=== PATIENT | female | born 1960 | race Caucasian/White ===

== ENCOUNTER → 2024-11-27 09:39 | Outpatient (REF) | payer MEDICARE, OTHER, SELFPAY ==
[2024-11-27 10:47] LABS: Hematocrit 49.2 % (37.0-47.0); Hemoglobin 16.2 g/dL (12.0-16.0); Mean Corp Hgb Conc. 32.9 g/dL (33.0-37.0); Mean Corpuscular Hgb 29.8 pg (27.0-31.0); Mean Corpuscular Volume 90.6 fL (81.0-99.0); Mean Platelet Volume 11.1 fL (7.4-10.4); Platelet Count 229 10^3/uL (130-400); Red Blood Cell Count 5.43 10^6/uL (4.20-5.40); White Blood Cell Count 7.7 10^3/uL (4.8-10.8)
[2024-11-27 10:56] LABS: INR 0.89; PT 12.4 Sec (11.4-14.6)
== END ==
LOC: REG 09:39
PROVIDERS: ATTENDING PHYSICIAN Specialist; FAMILY PHYSICIAN Family Medicine
DX: Z01.810 Encounter for preprocedural cardiovascular examination (principal); Z01.812 Encounter for preprocedural laboratory examination; I49.8 Other specified cardiac arrhythmias; C67.9 Malignant neoplasm of bladder, unspecified
CPT/HCPCS: 93005; 36415; 85027; 85610; 85730

== ENCOUNTER → 2024-11-27 10:33 | Outpatient (REF) | payer MEDICARE, OTHER, SELFPAY | LOC: RAD 10:33 | PROVIDERS: ATTENDING PHYSICIAN Specialist; FAMILY PHYSICIAN Family Medicine | DX: R31.0 Gross hematuria (principal) | CPT/HCPCS: 74178; Q9967 ==

== ENCOUNTER 2024-12-04 06:22 | Day surgery (SDC) | payer MEDICARE, OTHER, SELFPAY ==
[2024-11-27 14:24] VITALS: BMI 26.4
--- NOTE | 2024-11-27 15:39 | PTCARENOTE ---
Abn ECG, Dr Ugalde notified, no additional instructions received.
[2024-12-04] VITALS (8 sets, daily range): BP systolic 108–141; BP diastolic 66–93; BMI 26.4
[2024-12-04] MEDS: NORMOSOL-R/PLASMALYTE-A 1000 IV (08:37)
[2024-12-04] MEDS: SYRINGE NON-PUMP 50 ML IRRIG ×2 (11:22)
[2024-12-04] MEDS: SYRINGE NON-PUMP 50 MG IRRIG ×2 (11:22)
[2024-12-04] MEDS: DETROL LA 4 MG PO (11:38)
== END 2024-12-04 13:25 | disposition home or self-care (01) ==
LOC: SDS 06:22
PROVIDERS: ATTENDING PHYSICIAN Specialist
DX: C67.2 Malignant neoplasm of lateral wall of bladder (principal); D49.4 Neoplasm of unspecified behavior of bladder
CPT/HCPCS: 52234; 88307; J9201

== ENCOUNTER → 2025-03-10 08:35 | Outpatient (REF) | payer MEDICARE, OTHER, SELFPAY ==
[2025-03-10 10:57] LABS: Hematocrit 45.4 % (37.0-47.0); Hemoglobin 15.4 g/dL (12.0-16.0); Mean Corp Hgb Conc. 33.9 g/dL (33.0-37.0); Mean Corpuscular Hgb 30.6 pg (27.0-31.0); Mean Corpuscular Volume 90.3 fL (81.0-99.0); Platelet Count 249 10^3/uL (130-400); Red Blood Cell Count 5.03 10^6/uL (4.20-5.40); Red Cell Dist. Width 12.6 % (11.5-14.5); White Blood Cell Count 4.9 10^3/uL (4.8-10.8)
[2025-03-10 11:03] LABS: Blood Urea Nitrogen 13 mg/dl (7-17); Calcium 9.4 mg/dl (8.4-10.2); Carbon Dioxide 31 mmol/L (22-30); Chloride 102 mmol/L (98-107); Glucose 87 mg/dl (70-99); Potassium 4.4 mmol/L (3.5-5.1); Sodium 141 mmol/L (135-145); eGFR > 60.00
== END ==
LOC: SDSPAT 08:35
PROVIDERS: ATTENDING PHYSICIAN Specialist; FAMILY PHYSICIAN Family Medicine
DX: Z01.818 Encounter for other preprocedural examination (principal)
CPT/HCPCS: 36415; 80048; 85027

== ENCOUNTER 2025-03-17 06:20 | Day surgery (SDC) | payer MEDICARE, OTHER, SELFPAY ==
[2025-03-10 13:05] VITALS: BMI 25.4
[2025-03-17] VITALS (9 sets, daily range): BP systolic 112–151; BP diastolic 68–116; BMI 25.4
[2025-03-17] MEDS: NORMOSOL-R/PLASMALYTE-A 1000 IV (08:23)
[2025-03-17] MEDS: CYSVIEW KIT 100 MG INTRAVES (08:24)
[2025-03-17] MEDS: DILAUDID 0.25 MG IV (12:09)
[2025-03-17] MEDS: Pyridium 200 MG PO (12:44)
[2025-03-17] MEDS: DETROL LA 4 MG PO (12:44)
== END 2025-03-17 14:02 | disposition home or self-care (01) ==
LOC: SDS 06:20
PROVIDERS: ATTENDING PHYSICIAN Specialist; FAMILY PHYSICIAN Family Medicine
DX: C65.2 Malignant neoplasm of left renal pelvis (principal); D41.02 Neoplasm of uncertain behavior of left kidney; R31.0 Gross hematuria; Z85.51 Personal history of malignant neoplasm of bladder; N32.89 Other specified disorders of bladder; N30.20 Other chronic cystitis without hematuria
CPT/HCPCS: 52354; 52332; 52204; C9738; 88305; 74420; 76000; 88341; 88342; A9589; C1758; C1894; C2617

== ENCOUNTER → 2025-04-06 09:15 | Outpatient (REF) | payer MEDICARE, OTHER, SELFPAY | LOC: MRI 09:15 | PROVIDERS: ATTENDING PHYSICIAN Specialist; FAMILY PHYSICIAN Family Medicine | DX: D41.02 Neoplasm of uncertain behavior of left kidney (principal) | CPT/HCPCS: 74183; A9575 ==

== ENCOUNTER 2025-05-14 06:14 | Inpatient (IN) | payer MEDICARE, OTHER, SELFPAY ==
[2025-05-06 12:46] VITALS: BMI 26.0
[2025-05-14] VITALS (13 sets, daily range): BP systolic 115–145; BP diastolic 54–83; BMI 26.0
[2025-05-14] MEDS: NORMOSOL-R/PLASMALYTE-A 1000 IV (06:34)
[2025-05-14] MEDS: DILAUDID 0.25 MG IV ×3 (12:10→12:40)
[2025-05-14 13:26] LABS: Hematocrit 43.7 % (37.0-47.0); Hemoglobin 14.7 g/dL (12.0-16.0); Mean Corp Hgb Conc. 33.6 g/dL (33.0-37.0); Mean Corpuscular Volume 87.8 fL (81.0-99.0); Platelet Count 201 10^3/uL (130-400); Red Cell Dist. Width 12.2 % (11.5-14.5)
[2025-05-14 13:31] LABS: Blood Urea Nitrogen 11 mg/dl (7-17); Calcium 8.2 mg/dl (8.4-10.2); Carbon Dioxide 26 mmol/L (22-30); Chloride 108 mmol/L (98-107); Estimated Creatinine Clearance 81 ml/min; Glucose 123 mg/dl (70-99); Potassium 4.5 mmol/L (3.5-5.1); Sodium 139 mmol/L (135-145); eGFR > 60.00
--- NOTE | 2025-05-14 14:10 | PTCARENOTE ---
Pt arrived to 2S in bed. Full assessment completed. IVF initiated, nasal cannula maintained. Abdominal lap sites C/D/I, glued and ACCOUNTING ADMINISTRATOR. Indwelling catheter clean and intact, draining yellow urine. Pt denies pain at this time. Pt educated on diet and
to ring for assistance with ambulation, verbalized understanding. Bed locked and in the lowest position, safety maintained. Oriented to room and call lee.
[2025-05-14] MEDS: NSS 1000 IV ×2 (14:21→21:25)
[2025-05-14] MEDS: PERCOCET 5/325 1 TABLET PO ×2 (14:31→19:44)
[2025-05-14] MEDS: DILAUDID 0.5 MG IV (16:24)
[2025-05-14] MEDS: LIPITOR 40 MG PO (17:32)
[2025-05-14] MEDS: SENOKOT 17.2 MG PO (19:44)
[2025-05-15 03:00] VITALS: BP 119/63
[2025-05-15] MEDS: PERCOCET 5/325 1 TABLET PO ×2 (03:39→08:29)
--- NOTE | 2025-05-15 06:16 | PTCARENOTE ---
Pt mack removed at 0600. Tolerated well. DTV @ 1200.
[2025-05-15 07:35] VITALS: BP 131/55
[2025-05-15] MEDS: SENOKOT 17.2 MG PO (08:27)
[2025-05-15 08:31] LABS: Hematocrit 40.9 % (37.0-47.0); Hemoglobin 13.9 g/dL (12.0-16.0); Mean Corp Hgb Conc. 34.0 g/dL (33.0-37.0); Mean Corpuscular Volume 88.1 fL (81.0-99.0); Platelet Count 171 10^3/uL (130-400); Red Cell Dist. Width 12.4 % (11.5-14.5)
[2025-05-15 09:15] LABS: Blood Urea Nitrogen 18 mg/dl (7-17); Calcium 8.3 mg/dl (8.4-10.2); Carbon Dioxide 24 mmol/L (22-30); Chloride 110 mmol/L (98-107); Estimated Creatinine Clearance 63 ml/min; Glucose 129 mg/dl (70-99); Potassium 4.1 mmol/L (3.5-5.1); Sodium 137 mmol/L (135-145); eGFR > 60.00
--- NOTE | 2025-05-15 10:09 | W.PN.URO.CBU ---
Today's Communication / Plan
-
Discharge
Assessment / Plan
-
65F POD 1 s/p robotic L Nephroureterectomy for renal cell carcinoma, hx of bladder cancer
- Reg diet
- OOB/ambulate
- IS
- vitals and labs stable
- Discharge today
Diagnosis
-
Date of Service: May 15, 2025
-
Patient Diagnosis:
RCC
Post Op Day: 1 s/p L nephroureterectomy
Subjective
-
no issues overnight
feeling well
voided after mack removal
Objective
-
Vital Signs
Temp Pulse Resp BP Pulse Ox
98.6 F 54 18 131/55 96
05/15/25 07:35 05/15/25 07:35 05/15/25 07:35 05/15/25 07:35 05/15/25 07:35
Intake and Output
05/14/25 05/15/25 05/16/25
06:59 06:59 06:59
Intake Total 1940 / 1940 240 / 240
Output Total 2220 / 2220 500 / 500
Balance -280 / -280 -260 / -260
Intake:
Oral fluids 1440 / 1440 240 / 240
IV fluids (Total) 500 / 500
Output:
Urine, Mack 2220 / 2220
Urine, Voided 500 / 500
Laboratory Results
05/15/25 08:11
05/15/25 08:11
Physical Exam
-
General - well developed, well nourished, no acute distress
Chest - clear
Abdomen - soft, non-tender
Skin - warm & dry with no rash
Neuro - AOx3, no motor deficits
Extremities - no clubbing, no cyanosis, no edema
Incision - clean, dry
Dressing - clean, dry, intact
--- NOTE | 2025-05-15 11:00 | CM ---
CM following re: discharge planning.
Reviewed pt's chart, met with pt and pt's at bedside.
Pt is a 65 year old female, admitted with primary dx of POD 1 s/p robotic L Nephroureterectomy for renal cell carcinoma, hx of bladder cancer.
Pt reports she lives with in a 2SH, 1 step to enter, has 2 small dogs. 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
Discharge order noted. Pt is aware, expressed her agreement with discharge. IMM reviewed, placed on chart, pt has a copy.
PC[facility]: [facility]
D/C plan: home with no after care VN needs. to transport.
[2025-05-15 12:05] VITALS: BP 145/68
== END 2025-05-15 12:23 | disposition home or self-care (01) | DRG 658 ==
LOC: 2 SOUTH 06:14
PROVIDERS: ADMITTING PHYSICIAN Urology; FAMILY PHYSICIAN Family Medicine
PROC: 0TT14ZZ Resection of Left Kidney, Percutaneous Endoscopic Approach (ICD-10-PCS; 2025-05-14)
PROC: 8E0W4CZ Robotic Assisted Procedure of Trunk Region, Percutaneous Endoscopic Approach (ICD-10-PCS; 2025-05-14)
PROC: 0TT74ZZ Resection of Left Ureter, Percutaneous Endoscopic Approach (ICD-10-PCS; 2025-05-14)
DX: C64.2 Malignant neoplasm of left kidney, except renal pelvis (principal); C67.8 Malignant neoplasm of overlapping sites of bladder; E78.00 Pure hypercholesterolemia, unspecified; Z79.82 Long term (current) use of aspirin; Z79.891 Long term (current) use of opiate analgesic; Z79.899 Other long term (current) drug therapy; Z87.891 Personal history of nicotine dependence
CPT/HCPCS: 36415; 80048; 85027; 86850; 86900; 86901; 86920; 88307; 93005

== ENCOUNTER → 2025-10-26 10:44 | Outpatient (REF) | payer MEDICARE, OTHER, SELFPAY | LOC: RAD 10:44 | PROVIDERS: ATTENDING PHYSICIAN Urology; FAMILY PHYSICIAN Family Medicine | DX: C67.9 Malignant neoplasm of bladder, unspecified (principal); C64.2 Malignant neoplasm of left kidney, except renal pelvis | CPT/HCPCS: 71270; 74170; Q9967 ==